=== PATIENT | female | born 1935 | race Two or more races ===

== ENCOUNTER 2018-03-28 07:08 | Inpatient (IN) | payer OTHER ==
[2018-03-28] VITALS (42 sets, daily range): BP systolic 65–118; BP diastolic 26–51
[~2018-03-28] VITALS: Ht 152.4 cm; Wt 70.4 kg
--- NOTE | 2018-03-28 07:04 | Emergency Room Report ---
History of Present Illness General Source: Family Member, EMS Present Illness HPI Patient is 82-year-old female presented after increased altered level Consciousness. 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 The patient was noted to have decreased eye opening as well as decreased response to suctioning. The patient was noted to have adequate blood sugar by EMS. Allergies: Coded Allergies: No Known Allergies (Unverified , 03/28/18) Patient History Past Medical History: see triage record Reviewed Nursing Documentation: PMH: Agreed; PSxH: Agreed Review of Systems All Other Systems: limited - by mental status Physical Exam General Appearance: moderate distress, Chronically Ill ENT: dry mucus membranes Neck: limited range of motion Respiratory: rales Cardiovascular #1: edema - upper and lower extremity edema Gastrointestinal: normal inspection, normal bowel sounds, soft, other - gtube present Genitourinary: normal inspection Musculoskeletal: decreased range of motion, other - flaccid Neurologic: other - decreased motor strength, spontaneous respirations, no gag Psychiatric: other - unresponsive Skin: normal inspection, normal color Procedures Critical Care Time Critical Care Time Patient had a critical medical condition which untreated could potentially result in life or limb threatening injury. Total critical care time excluding procedures approximately 45 minutes. Central Line Central Line : Consent: Emergent Central Line Lumen: triple Maximal Sterile Barrier Tech: yes cap, yes mask, yes sterile gown, yes sterile gloves, yes large sterile sheet, yes hand hygiene, yes chlorhexidine prep Central Line Postion: internal jugular (R) Anesthesia: Lidocaine cc's of anesthesia: 3 Complications: none Central Line Post Position: sutured, good blood return, position confirmed w / CXR Attempts: Other - two Patient Tolerated: Well Complications: None Medical Decision Making Diagnostic Impression: Primary Impression: Severe sepsis Additional Impressions: Hyperkalemia, transcellular shifts Hepatic encephalopathy Hypotension Anemia Anasarca Lactic acidosis Ventilator dependent Feeding by G-tube Pulmonary edema ER Course Patient presented for altered mental status. Differential diagnosis included but was not limited to ischemic stroke, subarachnoid hemorrhage, hypoglycemia, spinal cord injury, neurodegenerative disorder, urinary tract infection, hypoxemia.Because of complexity of patient's case laboratory testing and imaging studies were ordered.The patient was noted to be hypotensive with poor IV access due to anasarca. A right internal jugular IV central line was placed emergently. The patient noted be hypotensive was started on IV fluids.The patient was noted to have recent blood draw with evidence of anemia as well as elevated BUN. Creatinine appeared normal. Patient may have some occult GI bleeding.The patient noted be G-tube dependent.Additional history is obtained from family member who states that the patient had a prolonged hospital stay [facility]. The patient had initially had history of atrial fibrillation as well as venous insufficiency and diabetes. Patient subsequently had complications from pneumonia and required intubation and tracheostomy and had increasing complications during hospitalization. The patient subsequently had a large stroke. Per patient's family patient had been somewhat responsive a few days ago. 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 Dr Leonel Rivero was contacted for inpatient management due to panel physician. Labs Test 03/28/18 07:30 White Blood Count 19.0 K/UL (4.8-10.8) Red Blood Count 2.45 M/UL (4.20-5.40) Hemoglobin 7.4 G/DL (12.0-16.0) Hematocrit 24.1 % (37.0-47.0) Mean Corpuscular Volume 98 FL (80-99) Mean Corpuscular Hemoglobin 30.4 PG (27.0-31.0) Mean Corpuscular Hemoglobin Concent 30.9 G/DL (32.0-36.0) Red Cell Distribution Width 17.2 % (11.6-14.8) Platelet Count 244 K/UL (150-450) Mean Platelet Volume 7.0 FL (6.5-10.1) Neutrophils (%) (Auto) % (45.0-75.0) Lymphocytes (%) (Auto) % (20.0-45.0) Monocytes (%) (Auto) % (1.0-10.0) Eosinophils (%) (Auto) % (0.0-3.0) Basophils (%) (Auto) % (0.0-2.0) Prothrombin Time 11.2 SEC (9.30-11.50) Prothromb Time International Ratio 1.1 (0.9-1.1) Activated Partial Thromboplast Time 41 SEC (23-33) Urine Color Yellow Urine Appearance Clear Urine pH 5 (4.5-8.0) Urine Specific [place] 1.015 (1.005-1.035) Urine Protein Negative (NEGATIVE) Urine Glucose (UA) Negative (NEGATIVE) Urine Ketones Negative (NEGATIVE) Urine Occult Blood Negative (NEGATIVE) Urine Nitrite Negative (NEGATIVE) Urine Bilirubin Negative (NEGATIVE) Urine Urobilinogen Normal MG/DL (0.0-1.0) Urine Leukocyte Esterase 1+ (NEGATIVE) Urine RBC 0-2 /HPF (0 - 2) Urine WBC 0-2 /HPF (0 - 2) Urine Squamous Epithelial Cells Few /LPF (NONE/OCC) Urine Bacteria Occasional /HPF (NONE) Sodium Level 130 MMOL/L (136-145) Potassium Level 6.1 MMOL/L (3.5-5.1) Chloride Level 97 MMOL/L (98-107) Carbon Dioxide Level 16 MMOL/L (21-32) Anion Gap 18 mmol/L (5-15) Blood Urea Nitrogen 114 mg/dL (7-18) Creatinine 2.1 MG/DL (0.55-1.30) Estimat Glomerular Filtration Rate mL/min (>60) Glucose Level 102 MG/DL (74-106) Lactic Acid Level 8.00 mmol/L (0.4-2.0) Calcium Level 8.1 MG/DL (8.5-10.1) Phosphorus Level 9.7 MG/DL (2.5-4.9) Magnesium Level 3.0 MG/DL (1.8-2.4) Total Bilirubin 0.9 MG/DL (0.2-1.0) Aspartate Amino Transf (AST/SGOT) 113 U/L (15-37) Alanine Aminotransferase (ALT/SGPT) 25 U/L (12-78) Alkaline Phosphatase 427 U/L (46-116) Total Creatine Kinase 80 U/L (26-308) Creatine Kinase MB 2.9 NG/ML (0.0-3.6) Creatine Kinase MB Relative Index 3.6 Troponin I 0.060 ng/mL (0.000-0.056) Total Protein 6.5 G/DL (6.4-8.2) Albumin 1.4 G/DL (3.4-5.0) Globulin 5.1 g/dL Albumin/Globulin Ratio 0.3 (1.0-2.7) Thyroid Stimulating Hormone (TSH) 1.229 uiU/mL (0.358-3.740) EKG Diagnostic Results Rate: bradycardiac Rhythm: NSR ST Segments: no acute changes Status: unchanged Disposition: ADMITTED INPATIENT Condition: Critical Golden Fisher MD Mar 28, 2018 07:04
[2018-03-28] MEDS ORDERED: ATORVASTATIN CA40 MG GT (07:21)
[2018-03-28] MEDS ORDERED: ASPIR 8181 MG GT (07:21)
[2018-03-28] MEDS ORDERED: CALCIUM + VITA1 EAC1 GT (07:21)
[2018-03-28] MEDS ORDERED: ACETAZOLAMIDE250 MG GT (07:21)
[2018-03-28] MEDS ORDERED: AMLODIPINE BESY10 MG GT (07:21)
[2018-03-28] MEDS ORDERED: LACRI-LUBE1 APPLIC BOTH EYES (07:21)
[2018-03-28] MEDS ORDERED: METOPROLOL SUCC25 MG GT (07:28)
[2018-03-28] MEDS ORDERED: MIRALAX17 G2 GT (07:28)
[2018-03-28] MEDS ORDERED: FAMOTIDINE20 MG GT (07:28)
[2018-03-28] MEDS ORDERED: CLOPIDOGREL75 MG GT (07:28)
[2018-03-28] MEDS ORDERED: VITAMIN D250000 UNI1 GT (07:28)
[2018-03-28] MEDS ORDERED: GABAPENTIN GT (07:28)
[2018-03-28] MEDS ORDERED: FUROSEMIDE40 MG GT (07:28)
[2018-03-28] MEDS ORDERED: ZOFRAN 4 MG4 MG/2 ML IM (07:28)
[2018-03-28] MEDS ORDERED: ACETAMINOPHEN325 M1 GT (07:37)
[2018-03-28] MEDS ORDERED: UTI-STAT L3875 MG/31 GT (07:37)
[2018-03-28] MEDS ORDERED: BISACODYL5 MG RC (07:37)
[2018-03-28] MEDS ORDERED: SENNA-S TABLET1 EACH GT (07:37)
[2018-03-28] MEDS ORDERED: Ampicillin/Sulbactam Sod 3 GM in NS 110 ML IV SCH (07:45)
[2018-03-28] MEDS ORDERED: ZINC SULFATE220 M1 GT (07:52)
[2018-03-28] MEDS ORDERED: VITAMIN C500 M1 GT (07:52)
[2018-03-28] MEDS ORDERED: MULTI-DELYN237 ML GT (07:52)
[2018-03-28 07:53] LABS: HEMATOCRIT 24.1 % (37.0-47.0); HEMOGLOBIN 7.4 G/DL (12.0-16.0); MEAN CORPUSCULAR VOLUME 98 FL (80-99); PLATELET COUNT 244 K/UL (150-450); RED BLOOD COUNT 2.45 M/UL (4.20-5.40); RED CELL DISTRIBUTION WIDTH 17.2 % (11.6-14.8)
[2018-03-28] MEDS ORDERED: Atropine Inj 1mg/10ml Syr ONE (07:55)
[2018-03-28] MEDS ORDERED: NOVOLIN N100 UNIT/1 SUBQ (07:55)
[2018-03-28] MEDS ORDERED: SEROQUEL25 MG GT (07:55)
[2018-03-28] MEDS ORDERED: LISPRO INSULIN (07:55)
[2018-03-28] MEDS ORDERED: Atropine Inj 1mg/10ml Syr IVP ONE (08:00)
[2018-03-28] MEDS ORDERED: Calcium Gluconate 1gm/10ml vial IVP ONE (08:00)
[2018-03-28 08:16] LABS: ALANINE AMINOTRANSFERASE 25 U/L (12-78); ALBUMIN 1.4 G/DL (3.4-5.0); ALBUMIN/GLOBULIN RATIO 0.3 (1.0-2.7); ALKALINE PHOSPHATASE 427 U/L (46-116); ANION GAP 18 mmol/L (5-15); ASPARTATE AMINO TRANSFERASE 113 U/L (15-37); BILIRUBIN,TOTAL 0.9 MG/DL (0.2-1.0); BLOOD UREA NITROGEN 114 mg/dL (7-18); CALCIUM 8.1 MG/DL (8.5-10.1); CARBON DIOXIDE 16 MMOL/L (21-32); CHLORIDE 97 MMOL/L (98-107); CKMB 2.9 NG/ML (0.0-3.6); CREATINE KINASE 80 U/L (26-308); CREATININE 2.1 MG/DL (0.55-1.30); PHOSPHORUS 9.7 MG/DL (2.5-4.9); SODIUM 130 MMOL/L (136-145)
[2018-03-28 08:21] LABS: POTASSIUM 6.1 MMOL/L (3.5-5.1)
[2018-03-28 08:26] LABS: APPEARANCE,URINE CLEAR; BILIRUBIN, URINE NEGATIVE (NEGATIVE); GLUCOSE, URINE (UA) NEGATIVE (NEGATIVE); KETONES,URINE NEGATIVE (NEGATIVE); LEUKOCYTE ESTERASE ,URINE 1+ (NEGATIVE); NITRITE,URINE NEGATIVE (NEGATIVE); PH,URINE 5 (4.5-8.0); PROTEIN,URINE NEGATIVE (NEGATIVE); UROBILINOGEN,URINE NORMAL MG/DL (0.0-1.0)
[2018-03-28 08:28] LABS: COLOR,URINE YELLOW
[2018-03-28 08:30] LABS: INR 1.1 (0.9-1.1)
[2018-03-28] MEDS ORDERED: Sodium Bicarbonate 50ml Carp IV ONE (08:30)
[2018-03-28 08:48] LABS: AMMONIA 123 umol/L (11-32)
[2018-03-28] MEDS: Lactulose 20gm/30ml UDC GT ONE ×3 (09:00→12:04)
[2018-03-28] MEDS ORDERED: Thiamine HCl 100 MG in D5W 55 ML IVPB SCH (09:00)
--- NOTE | 2018-03-28 09:13 | Diagnostic Imaging Report ---
INDICATION: Shortness of breath COMPARISON: None FINDINGS: Single frontal view demonstrates a normal cardiomediastinal silhouette. Atherosclerotic vascular disease. Tracheostomy. Small right pleural effusion. Patchy opacities in bilateral lungs may be suggestive of pulmonary edema versus infectious etiology, followup to resolution. Right internal jugular central venous catheter with tip in the distal superior vena cava/right atrium. The visualized osseous structures are within normal limits. IMPRESSION: 1. Small right pleural effusion. Patchy opacities in bilateral lungs may be suggestive of pulmonary edema versus infectious etiology, followup to resolution. 2. Tracheostomy. Right internal jugular central venous catheter with tip in the distal superior vena cava/right atrium.
--- NOTE | 2018-03-28 09:36 | Diagnostic Imaging Report ---
INDICATION: TECHNIQUE: Multiple, contiguous 2.5 mm axial cuts of the brain are obtained from the posterior fossa to the cranial vault. Sagittal and coronal reformatted images provided. No IV contrast is administered. One or more of the following dose reduction techniques were used: automated exposure control, adjustment of the mA and/or kV according to patient size, use of iterative reconstruction technique. COMPARISON: FINDINGS: No intracranial hemorrhage, abnormal intra- or extra-axial collections or parenchymal lesions are seen. There are involutional changes with prominence of the sulci, basal cisterns and ventricles. Scattered white matter hypoattenuations are present, likely from small vessel disease. Likely old infarct involving the left posterior parietal lobe, if clinical concern for superimposed acute infarct dedicated MRI can be obtained. The bay-white differentiation is preserved. No evidence of mass effect, midline shift, or edema. The osseous structures are unremarkable. The visualized portions of the paranasal sinuses are clear. IMPRESSION: 1. No acute intracranial process. 2. Involutional changes with small vessel disease. 3. Likely old infarct involving the left posterior parietal lobe, if clinical concern for superimposed acute infarct dedicated MRI can be obtained. CTDI: 70.38 mGy DLP:1393.46 mGycm
[2018-03-28] MEDS ORDERED: Lactulose 20gm/30ml UDC ONE (12:02)
--- NOTE | 2018-03-28 13:24 | Diagnostic Imaging Report ---
EXAM: US Abdomen Complete CLINICAL HISTORY: PAIN TECHNIQUE: Real-time ultrasound of the abdomen (complete) with image documentation. COMPARISON: No relevant prior studies available. FINDINGS: Liver: Diffusely echogenic liver, suggesting fatty infiltration. No intrahepatic bile duct dilation. Gallbladder: Cholelithiasis. No gallbladder wall thickening or pericholecystic fluid. Negative sonographic Arteaga sign. Common bile duct: Common bile duct diameter 2.5 mm. No stones. No dilation. Pancreas: Unremarkable as visualized. Pancreatic body and tail are obscured by bowel gas. Kidneys: Right kidney measures 10.9 x 5.0 x 4.2 cm. Left kidney measures 10.8 x 5.8 x 4.7 cm. No stones. No hydronephrosis. Spleen: Spleen has a diameter of 8.7 cm. Aorta: The visualized proximal and mid portions appear unremarkable. Distal portion obscured by bowel gas and overlying dressings.. Inferior vena cava: Unremarkable. IMPRESSION: 1. Diffusely echogenic liver, suggesting fatty infiltration. 2. Cholelithiasis. No gallbladder wall thickening or pericholecystic fluid. Negative sonographic Arteaga sign.
[2018-03-28] MEDS ORDERED: Acetaminophen 650mg/20.3ml GT PRN (13:45)
[2018-03-28] MEDS: Sodium Polystyrene Sulfonate 15gm Powder GT SCH ×2 (14:30→15:40)
[2018-03-28] MEDS ORDERED: Vancomycin 1250mg/D5W 250ml IVPB ONE (15:00)
[2018-03-28 15:06] LABS: HEMATOCRIT 33.1 % (37.0-47.0); HEMOGLOBIN 10.4 G/DL (12.0-16.0); MEAN CORPUSCULAR VOLUME 93 FL (80-99); PLATELET COUNT 218 K/UL (150-450); RED BLOOD COUNT 3.55 M/UL (4.20-5.40); RED CELL DISTRIBUTION WIDTH 16.2 % (11.6-14.8)
[2018-03-28 15:30] LABS: ANION GAP 18 mmol/L (5-15); BLOOD UREA NITROGEN 111 mg/dL (7-18); CALCIUM 7.7 MG/DL (8.5-10.1); CARBON DIOXIDE 15 MMOL/L (21-32); CHLORIDE 100 MMOL/L (98-107); CREATININE 1.9 MG/DL (0.55-1.30); SODIUM 133 MMOL/L (136-145)
[2018-03-28 15:40] LABS: ALANINE AMINOTRANSFERASE 37 U/L (12-78); ALBUMIN 1.5 G/DL (3.4-5.0); ALBUMIN/GLOBULIN RATIO 0.3 (1.0-2.7); ALKALINE PHOSPHATASE 380 U/L (46-116); ASPARTATE AMINO TRANSFERASE 220 U/L (15-37); BILIRUBIN,TOTAL 1.2 MG/DL (0.2-1.0)
[2018-03-28 15:44] LABS: BILIRUBIN,DIRECT 1.1 MG/DL (0.0-0.3)
[2018-03-28] MEDS: Sodium Bicarbonate 50 ML in 1/2 NS 1000ml 1,000 ML IV SCH (17:18)
[2018-03-28] MEDS: Piperacillin/Tazobactam 3.375 GM in D5W 110 ML IVPB SCH (17:24)
[2018-03-28] MEDS: NovoLOG Insulin Flexpen SUBQ SCH ×2 (17:26→23:48)
[2018-03-28] MEDS: Dyna-Hex 2% Top Sol 2oz TOPIC SCH (19:39)
[2018-03-29] VITALS (31 sets, daily range): BP systolic 12–124; BP diastolic 23–67
--- NOTE | 2018-03-29 | History and Physical Report ---
DATE OF ADMISSION: 03/28/2018 CHIEF COMPLAINT: Septic shock, respiratory failure, and encephalopathy. HISTORY OF PRESENT ILLNESS: She is an unfortunate 82-year-old female. She has a history of chronic respiratory failure, G-tube, diabetes, and hypertension. She has a history of atrial fibrillation, cerebral aneurysm, diabetic nephropathy, and venous insufficiency. She was transferred from a halfway facility with complaints of altered mental status. The patient on evaluation at the emergency room was very poorly responsive, lethargic, somnolent, and sleepy. She was hypotensive. She had an elevated BUN of 114 with a creatinine of 2. Potassium was also elevated at 6. Her ammonia level was 123. The patient was pancultured and started on broad-spectrum IV antibiotics and now admitted for further evaluation and care. PAST MEDICAL HISTORY: As above. PAST SURGICAL HISTORY: Includes trach and G-tube. CURRENT MEDICATIONS: Reconciled and reviewed. ALLERGIES: Unknown. FAMILY HISTORY: Unknown. SOCIAL HISTORY: There is no known history of tobacco, ethanol, or drugs. REVIEW OF SYSTEMS: From the patient is unobtainable as she is nonverbal. PHYSICAL EXAMINATION: VITAL SIGNS: Temperature 97.6, pulse 83, respirations 22, and blood pressure 102/36. GENERAL: The patient is a chronically ill-appearing female, poorly responsive, and in no apparent distress. She is currently on the ventilator. NECK: Supple. HEART: Regular rate and rhythm. LUNGS: Scattered rhonchi. ABDOMEN: Soft, nontender, and nondistended. EXTREMITIES: Without clubbing. There is some gangrene. There is a right heel ulcer. There is noted to be gangrenous changes of the toes on the right foot. LABORATORY DATA: ABG showed a pH of 7.09, pCO2 51, pO2 245, bicarb of 15, and O2 saturation 99. White count 19,000, hemoglobin 7.4, hematocrit 24, and platelets 244,000. Coags are normal. Sodium 138, potassium 6.1, chloride 97, bicarb 16, BUN 114, and creatinine is 2.1. Mag of 3. AST 113 and alkaline phosphatase 427. Ammonia level is 123. Troponin was 0.06. Chest x-ray showed bilateral infiltrates. CT scan of the head showed no acute bleed or stroke. Abdominal ultrasound showed gallstones, but no pericholecystic fluid or gallbladder wall thickening. ASSESSMENT: This is an unfortunate female admitted with complaints of altered mental status, multifactorial, secondary to acute renal failure, possible sepsis, and hepatic encephalopathy. 1. Shock. 2. Sepsis. 3. Pneumonia. 4. Hepatic encephalopathy. 5. Respiratory failure, chronic. 6. History of stroke. 7. Diabetes. 8. History of hypertension. 9. Atrial fibrillation. 10. History of brain aneurysm. PLAN: 1. Aggressive fluid resuscitation. 2. Transfuse. 3. Check stool for occult blood. 4. We will hold antiplatelet therapy in light of the patient's anemia and possible concern for gastrointestinal bleed. 5. We will review ultrasound. 6. GI consultation and ID consultations to be obtained. 7. Continue ventilatory support. 8. The patient's overall prognosis is guarded in light of her multiple medical issues and problems. Leonel Rivero M.D. DR: HUBER JOB#: [id number] CC:
--- NOTE | 2018-03-29 02:15 | Consultation ---
DATE OF CONSULTATION: 03/28/2018 PULMONARY CONSULTATION CONSULTING PHYSICIAN: Fei Velasquez M.D. REFERRING PHYSICIAN: Leonel Rivero M.D. REASON FOR CONSULTATION: Respiratory failure, ventilatory management. HISTORY OF PRESENT ILLNESS: This is an unfortunate 82-year-old male, presented to the emergency room. The patient has improved mental status overall. The patient was noted to have a prior history of chronic encephalopathy. The patient is trach and G-tube dependent. The patient was brought in through the emergency room and was noted to be extremely acidotic, metabolic. The patient now on the ventilator and I was called to assist and evaluate further. The patient is unable to give much of the history at present. The patient's care reviewed and case discussed. PAST MEDICAL HISTORY: Notable for G-tube, tracheostomy, diabetes, hypertension, and atherosclerotic heart disease. MEDICATIONS: Reviewed. ALLERGIES: Reviewed. SOCIAL HISTORY: Resides at a custodial facility. PHYSICAL EXAMINATION: GENERAL: A well-developed male, chronically ill. VITAL SIGNS: Blood pressure 107/73, saturations 100%, the patient's heart rate is 82, the patient is currently afebrile. The patient is tachypneic on the ventilator LUNGS: With scattered rhonchi. Moderate air entry. CARDIAC: Normal S1, S2. Regular rate and rhythm. Distant. ABDOMEN: Soft, nontender. G-tube. EXTREMITIES: No cyanosis. Reduced range of motion. Poor mental status. NEUROLOGICAL: Obtunded. LABORATORY DATA: Labs are reviewed. ABG, 7.18, 39, 59, and bicarbonate 17. Chemistries, sodium 137, creatinine 1.9. Lactic acid 3.2. Albumin is 1.5. White cell count 13, hemoglobin 10, and platelets are 218. X-ray of the chest with pleural effusion and patchy infiltrates. IMPRESSION: 1. Multiorgan dysfunction. 2. Respiratory failure. 3. Metabolic acidemia. 4. Lactic acidosis. 5. Leukocytosis. 6. Anemia. 7. Severe protein-calorie malnutrition. 8. Acute renal failure. 9. Diabetes. 10. Hypotension. RECOMMENDATIONS: Supportive care. Hyperventilated. Follow up arterial blood gases and try to keep pH greater than 7.2. If possible, intravenous antibiotics, aggressive management. Intravenous hydration with aggressive management and pressors as needed and monitor for change and titrate if the patient improved. The patient is critical at present. We will follow up medically for change. Fei Velasquez M.D. DR: JUSTUS JOB#: [id number] CC: MARK
[2018-03-29] MEDS: Sodium Bicarbonate 50 ML in 1/2 NS 1000ml 1,000 ML IV SCH ×2 (03:56→13:56)
[2018-03-29] MEDS: NovoLOG Insulin Flexpen SUBQ SCH ×4 (05:39→23:36)
[2018-03-29] MEDS ORDERED: Vancomycin 1250mg/D5W 250ml IVPB SCH (08:00)
[2018-03-29 08:21] LABS: HEMATOCRIT 28.9 % (37.0-47.0); HEMOGLOBIN 9.3 G/DL (12.0-16.0); MEAN CORPUSCULAR VOLUME 91 FL (80-99); PLATELET COUNT 203 K/UL (150-450); RED BLOOD COUNT 3.18 M/UL (4.20-5.40); RED CELL DISTRIBUTION WIDTH 16.2 % (11.6-14.8); WHITE BLOOD COUNT 15.2 K/UL (4.8-10.8)
[2018-03-29] MEDS: Zinc Sulfate 220mg cap GT SCH (08:44)
[2018-03-29] MEDS: Ascorbic Acid 500mg tab GT SCH (08:44)
[2018-03-29] MEDS: Piperacillin/Tazobactam 3.375 GM in D5W 110 ML IVPB SCH ×2 (08:45→21:06)
--- NOTE | 2018-03-29 08:46 | Critical Care Progress Note ---
Assessment/Plan Assessment/Plan IMPRESSION: 1. Multiorgan dysfunction. 2. Respiratory failure. 3. Metabolic acidemia. 4. Lactic acidosis. 5. Leukocytosis. 6. Anemia. 7. Severe protein-calorie malnutrition. 8. Acute renal failure. 9. Diabetes. 10. Hypotension. PLAN pressors hyperventilate monitor for change antibiotics IV hydration feeds ICU care and management repeat ABG and adjust vent Critical Care - Subjective Interval Events: on vent on AC20 poor LOC ROS Limited/Unobtainable: Yes Condition: critical I&O: Intake and Output 03/28/18 03/29/18 19:00 07:00 Intake Total 1552.0 ml 1350.5 ml Output Total 730 ml 465 ml Balance 822.0 ml 885.5 ml Intake Oral 0 ml Free Water 30 ml IV Total 1522.0 ml 1350.5 ml Output Urine Total 330 ml 165 ml Stool Total 300 ml Gastric Drainage Total 400 ml # Bowel Movements 1 3 Critical Care - Objective Last 24 Hour Vital Signs Date Time Temp Pulse Resp B/P (MAP) Pulse Ox O2 Delivery O2 Flow Rate FiO2 03/29/18 08:00 50 03/29/18 08:00 98.6 84 22 121/33 100 Mechanical Ventilator 50 98.6 03/29/18 07:26 87 20 50 03/29/18 07:00 86 20 116/30 100 Mechanical Ventilator 50 03/29/18 06:30 85 20 112/33 100 Mechanical Ventilator 50 03/29/18 06:00 84 20 108/29 100 Mechanical Ventilator 50 03/29/18 06:00 108/29 03/29/18 05:30 86 21 118/33 100 Mechanical Ventilator 50 03/29/18 05:26 91 21 50 03/29/18 05:00 83 20 121/28 99 Mechanical Ventilator 50 03/29/18 05:00 121/28 03/29/18 04:30 79 20 124/30 100 Mechanical Ventilator 50 03/29/18 04:00 50 03/29/18 04:00 109/31 03/29/18 04:00 98.5 84 22 109/31 100 Mechanical Ventilator 50 98.5 03/29/18 03:30 88 21 106/33 100 Mechanical Ventilator 50 03/29/18 03:28 80 03/29/18 03:01 91 20 80 03/29/18 03:00 85 21 123/43 100 Mechanical Ventilator 50 03/29/18 03:00 123/43 03/29/18 02:30 89 21 103/32 100 Mechanical Ventilator 50 03/29/18 02:00 109/23 03/29/18 02:00 89 22 109/29 100 Mechanical Ventilator 50 03/29/18 01:30 88 22 118/30 99 Mechanical Ventilator 50 03/29/18 01:00 97 21 80 03/29/18 01:00 106/39 03/29/18 01:00 88 20 106/39 100 Mechanical Ventilator 50 03/29/18 00:30 79 20 106/35 100 Mechanical Ventilator 50 03/29/18 00:00 98.7 81 20 99/31 100 Mechanical Ventilator 50 98.7 03/29/18 00:00 50 03/29/18 00:00 99/31 03/28/18 23:30 82 20 109/40 98 Mechanical Ventilator 50 03/28/18 23:07 90 03/28/18 23:00 89/34 03/28/18 23:00 89 21 80 03/28/18 23:00 79 19 89/34 98 Mechanical Ventilator 50 03/28/18 22:30 85 20 93/30 99 Mechanical Ventilator 50 03/28/18 22:00 94/38 03/28/18 22:00 86 21 109/40 99 Mechanical Ventilator 50 03/28/18 21:30 80 20 99/37 98 Mechanical Ventilator 50 03/28/18 21:15 79 20 80 03/28/18 21:00 83 20 92/42 99 Mechanical Ventilator 50 03/28/18 21:00 92/42 03/28/18 20:30 84 20 99/36 100 Mechanical Ventilator 50 03/28/18 20:00 50 03/28/18 20:00 97/39 03/28/18 20:00 98.7 87 21 97/39 100 Mechanical Ventilator 50 98.7 03/28/18 19:31 82 03/28/18 19:30 82 20 107/33 100 Mechanical Ventilator 50 03/28/18 19:09 88 22 80 03/28/18 19:00 103/36 03/28/18 19:00 84 22 104/35 100 Mechanical Ventilator 50 03/28/18 18:30 84 22 118/36 100 Mechanical Ventilator 50 03/28/18 18:15 83 22 107/32 100 Mechanical Ventilator 50 18 18:00 122/31 6/18 18:00 82 22 107/35 100 Mechanical Ventilator 50 6/18 17:30 83 22 104/37 100 Mechanical Ventilator 80 6/10/18 17:19 118/36 6/1018 17:00 84 22 118/36 100 Mechanical Ventilator 80 6/10/18 16:45 83 22 105/38 100 Mechanical Ventilator 80 6/18 16:39 84 21 80 6/1018 16:30 83 22 112/38 100 Mechanical Ventilator 80 6/1018 16:15 82 22 105/38 100 Mechanical Ventilator 80 6/18 16:00 97.6 83 22 102/36 100 Mechanical Ventilator 80 97.6 6 16:00 108/33 6 16:00 80 6/08/05 16:00 81 6/1018 15:45 82 22 105/38 100 Mechanical Ventilator 80 6/18 15:30 83 18 105/30 100 Mechanical Ventilator 80 618 15:15 83 20 105/32 100 Mechanical Ventilator 80 618 15:00 83 18 102/36 100 Mechanical Ventilator 80 618 14:58 84 34 80 6//18 14:45 83 20 102/34 100 Mechanical Ventilator 80 6/18 14:30 83 20 99/36 100 Mechanical Ventilator 80 6/18 14:15 83 20 89/41 100 Mechanical Ventilator 80 6/18 14:00 98.5 83 20 112/43 100 Mechanical Ventilator 80 98.5 03/28/18 13:30 80 6 12:55 90 28 80 6/18 12:54 87 6/1018 12:40 97.2 87 20 113/42 100 Mechanical Ventilator 100 97.2 6/18 12:39 87 20 113/42 100 Mechanical Ventilator 100 6/18 11:59 97.2 75 20 112/45 100 Mechanical Ventilator 100 97.2 6/1018 11:30 84 20 106/45 100 Mechanical Ventilator 100 6/18 11:00 95 20 108/38 100 Mechanical Ventilator 100 6 10:39 91 20 106/34 100 Mechanical Ventilator 100 6/08/05 10:33 94 22 100 6/1018 10:24 93/37 03/28/18 10:20 97.6 89 20 98/38 100 Mechanical Ventilator 100 97.6 03/28/18 10:11 97.7 85 20 97.7 03/28/18 10:00 97.7 85 33 93/38 100 Mechanical Ventilator 100 97.7 03/28/18 09:30 90 33 103/33 100 Mechanical Ventilator 100 03/28/18 09:29 91 25 100 03/28/18 09:00 85 33 112/38 100 Mechanical Ventilator 100 Labs: Laboratory Tests Test 03/28/18 09:30 03/28/18 14:30 03/28/18 16:50 03/28/18 23:09 Lactic Acid Level 5.70 mmol/L (0.66-2.22) H 3.20 mmol/L (0.4-2.0) H White Blood Count 15.0 K/UL (4.8-10.8) H Red Blood Count 3.55 M/UL (4.20-5.40) L Hemoglobin 10.4 G/DL (12.0-16.0) #L Hematocrit 33.1 % (37.0-47.0) #L Mean Corpuscular Volume 93 FL (80-99) Mean Corpuscular Hemoglobin 29.2 PG (27.0-31.0) Mean Corpuscular Hemoglobin Concent 31.3 G/DL (32.0-36.0) L Red Cell Distribution Width 16.2 % (11.6-14.8) H Platelet Count 218 K/UL (150-450) Mean Platelet Volume 7.6 FL (6.5-10.1) Neutrophils (%) (Auto) % (45.0-75.0) Lymphocytes (%) (Auto) % (20.0-45.0) Monocytes (%) (Auto) % (1.0-10.0) Eosinophils (%) (Auto) % (0.0-3.0) Basophils (%) (Auto) % (0.0-2.0) Differential Total Cells Counted 100 Neutrophils % (Manual) 64 % (45-75) Lymphocytes % (Manual) 10 % (20-45) L Monocytes % (Manual) 8 % (1-10) Eosinophils % (Manual) 0 % (0-3) Basophils % (Manual) 0 % (0-2) Band Neutrophils 18 % (0-8) H Nucleated Red Blood Cells 6 /100 WBC Platelet Estimate Adequate Platelet Morphology Normal Giant Platelets Occasional Polychromasia 1+ Hypochromasia 1+ Poikilocytosis 1+ Anisocytosis 2+ Acanthocytes 1+ Schistocytes Occasional Sodium Level 133 MMOL/L (136-145) L Potassium Level 5.0 MMOL/L (3.5-5.1) Chloride Level 100 MMOL/L (98-107) Carbon Dioxide Level 15 MMOL/L (21-32) L Anion Gap 18 mmol/L (5-15) H Blood Urea Nitrogen 111 mg/dL (7-18) H Creatinine 1.9 MG/DL (0.55-1.30) H Estimat Glomerular Filtration Rate mL/min (>60) Glucose Level 164 MG/DL (74-106) H Hemoglobin A1c 6.4 % (4.3-6.0) H Calcium Level 7.7 MG/DL (8.5-10.1) L Total Bilirubin 1.2 MG/DL (0.2-1.0) H Direct Bilirubin 1.1 MG/DL (0.0-0.3) H Aspartate Amino Transf (AST/SGOT) 220 U/L (15-37) H Alanine Aminotransferase (ALT/SGPT) 37 U/L (12-78) Alkaline Phosphatase 380 U/L (46-116) H Total Protein 6.3 G/DL (6.4-8.2) L Albumin 1.5 G/DL (3.4-5.0) L Globulin 4.8 g/dL Albumin/Globulin Ratio 0.3 (1.0-2.7) L Arterial Blood pH 7.180 (7.350-7.450) Arterial Blood Partial Pressure CO2 39.8 mmHg (35.0-45.0) Arterial Blood Partial Pressure O2 159.2 mmHg (75.0-100.0) H Arterial Blood HCO3 14.6 mmol/L (22.0-26.0) L Arterial Blood Oxygen Saturation 98.7 % (92.0-98.0) H Arterial Blood Base Excess -13.0 Cristopher Test Positive Stool Occult Blood Pending Test 03/29/18 05:00 03/29/18 06:25 Lactic Acid Level 1.60 mmol/L (0.4-2.0) Random Vancomycin Level 17.7 ug/mL White Blood Count 15.2 K/UL (4.8-10.8) H Red Blood Count 3.18 M/UL (4.20-5.40) L Hemoglobin 9.3 G/DL (12.0-16.0) L Hematocrit 28.9 % (37.0-47.0) L Mean Corpuscular Volume 91 FL (80-99) Mean Corpuscular Hemoglobin 29.4 PG (27.0-31.0) Mean Corpuscular Hemoglobin Concent 32.4 G/DL (32.0-36.0) Red Cell Distribution Width 16.2 % (11.6-14.8) H Platelet Count 203 K/UL (150-450) Mean Platelet Volume 7.0 FL (6.5-10.1) Neutrophils (%) (Auto) % (45.0-75.0) Lymphocytes (%) (Auto) % (20.0-45.0) Monocytes (%) (Auto) % (1.0-10.0) Eosinophils (%) (Auto) % (0.0-3.0) Basophils (%) (Auto) % (0.0-2.0) Neutrophils % (Manual) Pending Lymphocytes % (Manual) Pending Platelet Estimate Pending Platelet Morphology Pending Sodium Level Pending Potassium Level Pending Chloride Level Pending Carbon Dioxide Level Pending Blood Urea Nitrogen Pending Creatinine Pending Estimat Glomerular Filtration Rate Pending Glucose Level Pending Calcium Level Pending Total Bilirubin Pending Aspartate Amino Transf (AST/SGOT) Pending Alanine Aminotransferase (ALT/SGPT) Pending Alkaline Phosphatase Pending Total Protein Pending Albumin Pending Globulin Pending Objective: GENERAL: A well-developed female, chronically ill. LUNGS: With minimal rhonchi. Moderate air entry. CARDIAC: Normal S1, S2. Regular rate and rhythm. Distant. ABDOMEN: Soft, nontender. G-tube. EXTREMITIES: No cyanosis. Reduced range of motion. Poor mental status. NEUROLOGICAL: Obtunded. Accucheck: 156 Fei Velasquez MD Mar 29, 2018 08:46
[2018-03-29 09:02] LABS: ALANINE AMINOTRANSFERASE 45 U/L (12-78); ALBUMIN 1.4 G/DL (3.4-5.0); ALBUMIN/GLOBULIN RATIO 0.3 (1.0-2.7); ALKALINE PHOSPHATASE 380 U/L (46-116); ANION GAP 18 mmol/L (5-15); ASPARTATE AMINO TRANSFERASE 316 U/L (15-37); BILIRUBIN,TOTAL 1.4 MG/DL (0.2-1.0); BLOOD UREA NITROGEN 119 mg/dL (7-18); CALCIUM 7.3 MG/DL (8.5-10.1); CARBON DIOXIDE 18 MMOL/L (21-32); CHLORIDE 97 MMOL/L (98-107); CREATININE 2.1 MG/DL (0.55-1.30); POTASSIUM 4.7 MMOL/L (3.5-5.1); SODIUM 132 MMOL/L (136-145)
[2018-03-29 09:07] LABS: BILIRUBIN,DIRECT 1.1 MG/DL (0.0-0.3)
--- NOTE | 2018-03-29 10:09 | General Progress Note ---
Assessment/Plan Problem List: (1) Lactic acidosis ICD Codes: E87.2 - Acidosis SNOMED: 48872727, 466200037 (2) Hyperkalemia, transcellular shifts ICD Codes: E87.5 - Hyperkalemia SNOMED: 1649162, 622473217 (3) Anemia ICD Codes: D64.9 - Anemia, unspecified SNOMED: 795089437, 552765957 (4) Anasarca ICD Codes: R60.1 - Generalized edema SNOMED: 971443943, 123945217 (5) Pulmonary edema ICD Codes: J81.1 - Chronic pulmonary edema SNOMED: 58660528 (6) Severe sepsis ICD Codes: A41.9 - Sepsis, unspecified organism; R65.20 - Severe sepsis without septic shock SNOMED: 10663769, 772116514 (7) Feeding by G-tube ICD Codes: Z93.1 - Gastrostomy status; R65.20 - Severe sepsis without septic shock SNOMED: 127814632, 753669892 (8) Hepatic encephalopathy ICD Codes: K72.90 - Hepatic failure, unspecified without coma SNOMED: 73376586, 073859302 Status: not improved, deteriorating Assessment/Plan convert to comfort care once all family has arrived pt with multiorgan system little hope of meaningful recovery d/w dtr at the bedside. states her mother told her she did not want to suffer Subjective ROS Limited/Unobtainable: Yes Constitutional: Reports: malaise, weakness HEENT: Reports: no symptoms Cardiovascular: Reports: edema Respiratory: Reports: no symptoms Gastrointestinal/Abdominal: Reports: no symptoms Genitourinary: Reports: no symptoms Neurologic/Psychiatric: Reports: pre-existing deficit Endocrine: Reports: no symptoms Hematologic/Lymphatic: Reports: no symptoms Allergies: Coded Allergies: No Known Allergies (Unverified , 03/28/18) All Systems: reviewed and negative except above Subjective unresponsive. +sob. no uop. off pressors. family at the bedside. does not want pt to suffer. want to convert to comfort care once all family members have arrived Objective Last 24 Hour Vital Signs Date Time Temp Pulse Resp B/P (MAP) Pulse Ox O2 Delivery O2 Flow Rate FiO2 03/29/18 09:27 91 20 50 03/29/18 09:00 71 17 107/47 100 Mechanical Ventilator 50 03/29/18 08:00 50 03/29/18 08:00 98.6 84 22 121/33 100 Mechanical Ventilator 50 98.6 03/29/18 08:00 85 03/29/18 07:26 87 20 50 03/29/18 07:00 86 20 116/30 100 Mechanical Ventilator 50 03/29/18 06:30 85 20 112/33 100 Mechanical Ventilator 50 03/29/18 06:00 84 20 108/29 100 Mechanical Ventilator 50 03/29/18 06:00 108/29 03/29/18 05:30 86 21 118/33 100 Mechanical Ventilator 50 03/29/18 05:26 91 21 50 03/29/18 05:00 83 20 121/28 99 Mechanical Ventilator 50 03/29/18 05:00 121/28 03/29/18 04:30 79 20 124/30 100 Mechanical Ventilator 50 03/29/18 04:00 50 03/29/18 04:00 109/31 03/29/18 04:00 98.5 84 22 109/31 100 Mechanical Ventilator 50 98.5 03/29/18 03:30 88 21 106/33 100 Mechanical Ventilator 50 03/29/18 03:28 80 03/29/18 03:01 91 20 80 03/29/18 03:00 85 21 123/43 100 Mechanical Ventilator 50 03/29/18 03:00 123/43 03/29/18 02:30 89 21 103/32 100 Mechanical Ventilator 50 03/29/18 02:00 109/23 03/29/18 02:00 89 22 109/29 100 Mechanical Ventilator 50 03/29/18 01:30 88 22 118/30 99 Mechanical Ventilator 50 03/29/18 01:00 97 21 80 03/29/18 01:00 106/39 03/29/18 01:00 88 20 106/39 100 Mechanical Ventilator 50 03/29/18 00:30 79 20 106/35 100 Mechanical Ventilator 50 03/29/18 00:00 98.7 81 20 99/31 100 Mechanical Ventilator 50 98.7 03/29/18 00:00 50 03/29/18 00:00 99/31 03/28/18 23:30 82 20 109/40 98 Mechanical Ventilator 50 03/28/18 23:07 90 03/28/18 23:00 89/34 6/10/18 23:00 89 21 80 6/18 23:00 79 19 89/34 98 Mechanical Ventilator 50 618 22:30 85 20 93/30 99 Mechanical Ventilator 50 6/18 22:00 94/38 6/18 22:00 86 21 109/40 99 Mechanical Ventilator 50 6/18 21:30 80 20 99/37 98 Mechanical Ventilator 50 6/18 21:15 79 20 80 6/18 21:00 83 20 92/42 99 Mechanical Ventilator 50 6 21:00 92/42 6/18 20:30 84 20 99/36 100 Mechanical Ventilator 50 6/08/05 20:00 50 6 20:00 97/39 6/08/05 20:00 98.7 87 21 97/39 100 Mechanical Ventilator 50 98.7 03/28/18 19:31 82 6/18 19:30 82 20 107/33 100 Mechanical Ventilator 50 03/28/18 19:09 88 22 80 6 19:00 103/36 6 19:00 84 22 104/35 100 Mechanical Ventilator 50 03/28/18 18:30 84 22 118/36 100 Mechanical Ventilator 50 18 18:15 83 22 107/32 100 Mechanical Ventilator 50 03/28/18 18:00 122/31 6 18:00 82 22 107/35 100 Mechanical Ventilator 50 18 17:30 83 22 104/37 100 Mechanical Ventilator 80 03/28/18 17:19 118/36 6 17:00 84 22 118/36 100 Mechanical Ventilator 80 03/28/18 16:45 83 22 105/38 100 Mechanical Ventilator 80 618 16:39 84 21 80 6/18 16:30 83 22 112/38 100 Mechanical Ventilator 80 18 16:15 82 22 105/38 100 Mechanical Ventilator 80 18 16:00 97.6 83 22 102/36 100 Mechanical Ventilator 80 97.6 618 16:00 108/33 618 16:00 80 6 16:00 81 6/18 15:45 82 22 105/38 100 Mechanical Ventilator 80 618 15:30 83 18 105/30 100 Mechanical Ventilator 80 6/18 15:15 83 20 105/32 100 Mechanical Ventilator 80 03/28/18 15:00 83 18 102/36 100 Mechanical Ventilator 80 03/28/18 14:58 84 34 80 03/28/18 14:45 83 20 102/34 100 Mechanical Ventilator 80 03/28/18 14:30 83 20 99/36 100 Mechanical Ventilator 80 03/28/18 14:15 83 20 89/41 100 Mechanical Ventilator 80 03/28/18 14:00 98.5 83 20 112/43 100 Mechanical Ventilator 80 98.5 03/28/18 13:30 80 03/28/18 12:55 90 28 80 03/28/18 12:54 87 03/28/18 12:40 97.2 87 20 113/42 100 Mechanical Ventilator 100 97.2 03/28/18 12:39 87 20 113/42 100 Mechanical Ventilator 100 03/28/18 11:59 97.2 75 20 112/45 100 Mechanical Ventilator 100 97.2 03/28/18 11:30 84 20 106/45 100 Mechanical Ventilator 100 03/28/18 11:00 95 20 108/38 100 Mechanical Ventilator 100 03/28/18 10:39 91 20 106/34 100 Mechanical Ventilator 100 03/28/18 10:33 94 22 100 03/28/18 10:24 93/37 03/28/18 10:20 97.6 89 20 98/38 100 Mechanical Ventilator 100 97.6 03/28/18 10:11 97.7 85 20 97.7 Intake and Output 03/28/18 03/29/18 19:00 07:00 Intake Total 1552.0 ml 1350.5 ml Output Total 730 ml 465 ml Balance 822.0 ml 885.5 ml Intake Oral 0 ml Free Water 30 ml IV Total 1522.0 ml 1350.5 ml Output Urine Total 330 ml 165 ml Stool Total 300 ml Gastric Drainage Total 400 ml # Bowel Movements 1 3 Laboratory Tests 03/28/18 14:30: White Blood Count 15.0H, Red Blood Count 3.55L, Hemoglobin 10.4#L, Hematocrit 33.1#L, Mean Corpuscular Volume 93, Mean Corpuscular Hemoglobin 29.2, Mean Corpuscular Hemoglobin Concent 31.3L, Red Cell Distribution Width 16.2H, Platelet Count 218, Mean Platelet Volume 7.6, Neutrophils (%) (Auto) , Lymphocytes (%) (Auto) , Monocytes (%) (Auto) , Eosinophils (%) (Auto) , Basophils (%) (Auto) , Differential Total Cells Counted 100, Neutrophils % ( Manual) 64, Lymphocytes % (Manual) 10L, Monocytes % (Manual) 8, Eosinophils % ( Manual) 0, Basophils % (Manual) 0, Band Neutrophils 18H, Nucleated Red Blood Cells 6, Platelet Estimate Adequate, Platelet Morphology Normal, Giant Platelets Occasional, Polychromasia 1+, Hypochromasia 1+, Poikilocytosis 1+, Anisocytosis 2+, Acanthocytes 1+, Schistocytes Occasional, Sodium Level 133L, Potassium Level 5.0, Chloride Level 100, Carbon Dioxide Level 15L, Anion Gap 18H , Blood Urea Nitrogen 111H, Creatinine 1.9H, Estimat Glomerular Filtration Rate , Glucose Level 164H, Hemoglobin A1c 6.4H, Lactic Acid Level 3.20H, Calcium Level 7.7L, Total Bilirubin 1.2H, Direct Bilirubin 1.1H, Aspartate Amino Transf (AST/SGOT) 220H, Alanine Aminotransferase (ALT/SGPT) 37, Alkaline Phosphatase 380H, Total Protein 6.3L, Albumin 1.5L, Globulin 4.8, Albumin/Globulin Ratio 0.3L 03/28/18 16:50: Arterial Blood pH 7.180*L, Arterial Blood Partial Pressure CO2 39.8, Arterial Blood Partial Pressure O2 159.2H, Arterial Blood HCO3 14.6L, Arterial Blood Oxygen Saturation 98.7H, Arterial Blood Base Excess -13.0, Cristopher Test Positive 03/28/18 23:09: Stool Occult Blood [Pending] 03/29/18 05:00: Lactic Acid Level 1.60, Random Vancomycin Level 17.7 03/29/18 06:25: White Blood Count 15.2H, Red Blood Count 3.18L, Hemoglobin 9.3L, Hematocrit 28.9L, Mean Corpuscular Volume 91, Mean Corpuscular Hemoglobin 29.4, Mean Corpuscular Hemoglobin Concent 32.4, Red Cell Distribution Width 16.2H, Platelet Count 203, Mean Platelet Volume 7.0, Neutrophils (%) (Auto) , Lymphocytes (%) (Auto) , Monocytes (%) (Auto) , Eosinophils (%) (Auto) , Basophils (%) (Auto) , Differential Total Cells Counted 100, Neutrophils % ( Manual) 79H, Lymphocytes % (Manual) 7L, Monocytes % (Manual) 10, Eosinophils % ( Manual) 1, Basophils % (Manual) 0, Band Neutrophils 3, Nucleated Red Blood Cells 9, Platelet Estimate Adequate, Platelet Morphology Normal, Anisocytosis 1+ , Macrocytosis 1+, [place] Cells 2+, Acanthocytes 1+, Sodium Level 132L, Potassium Level 4.7, Chloride Level 97L, Carbon Dioxide Level 18L, Anion Gap 18H, Blood Urea Nitrogen 119H, Creatinine 2.1H, Estimat Glomerular Filtration Rate , Glucose Level 145H, Calcium Level 7.3L, Total Bilirubin 1.4H, Direct Bilirubin 1.1H, Aspartate Amino Transf (AST/SGOT) 316H, Alanine Aminotransferase (ALT/SGPT ) 45, Alkaline Phosphatase 380H, Total Protein 6.1L, Albumin 1.4L, Globulin 4.7 , Albumin/Globulin Ratio 0.3L Height (Feet): 5 Height (Inches): 2.00 Weight (Pounds): 159 General Appearance: WD/WN, lethargic Neck: normal inspection Cardiovascular: regular rhythm Respiratory/Chest: rhonchi - bilaterally Abdomen: no organomegaly, no mass Neurologic: unresponsive Leonel Rivero MD Mar 29, 2018 10:09
[2018-03-29] MEDS ORDERED: PCA Morphine 1mg/ml 30 ML IV PRN (10:15)
--- NOTE | 2018-03-29 10:15 | Diagnostic Imaging Report ---
Indication: Dyspnea Technique: One view of the chest Comparison: 03/28/2018 Findings: Right jugular central venous catheter, tracheostomy remain. Diffuse airspace consolidation bilaterally appears unchanged. There may be a small right pleural effusion Impression: Unchanged, over one day, findings as above.
[2018-03-29] MEDS ORDERED: Sterile Water Irrig 1000ml IRRIG ONE (15:32)
--- NOTE | 2018-03-29 17:15 | Consultation ---
DATE OF CONSULTATION: 03/29/2018 INFECTIOUS DISEASES CONSULTATION CONSULTING PHYSICIAN: Gage Pathak M.D. REFERRING PHYSICIAN: Leonel Rivero M.D. REASON FOR CONSULTATION: Septic shock. HISTORY OF PRESENTING ILLNESS: This is an 82-year-old lady with history of diabetes, hypertension, respiratory failure, status post tracheostomy, atrial fibrillation, and cerebral aneurysm, who came in from a snf facility with altered mental status. She was found to be poorly responsive, lethargic, and hypotensive. She was found to have elevated BUN of 114 and creatinine of 2 with elevated potassium of 6. She has been admitted to the ICU and an Infectious Diseases consultation has been obtained for possible septic shock. PAST MEDICAL HISTORY: 1. History of diabetes. 2. Hypertension. 3. Respiratory failure, status post tracheostomy. 4. Status post G-tube placement. 5. Atrial fibrillation. 6. Cerebral aneurysm. 7. Diabetic nephropathy. 8. Venous insufficiency. MEDICATIONS: As an inpatient, the patient is on morphine, ascorbic acid, famotidine, zinc sulfate, received intravenous vancomycin, chlorhexidine, gluconate, Zosyn, insulin, norepinephrine, and Zofran. ALLERGIES: No known drug allergies. SOCIAL HISTORY: No history of smoking, alcohol, or drug use. FAMILY HISTORY: Unknown. REVIEW OF SYSTEMS: Unable to obtain currently. PHYSICAL EXAMINATION: VITAL SIGNS: Temperature of 98.6, T-max of 98.7, pulse of 84, respiratory rate 22, blood pressure 124/34, and O2 saturation of 98%. HEENT: Pupils equally reactive to light and accommodation. Mouth appears clean without thrush. NECK: Supple. No adenopathy. No JVD. Tracheostomy site appears clean. CARDIOVASCULAR: Regular rate and rhythm. No murmurs. LUNGS: Clear to auscultation bilaterally. No crackles. No wheezes. ABDOMEN: Soft and nontender. No organomegaly. G-tube site appears clean. EXTREMITIES: No cyanosis, no clubbing. Edema noted bilaterally. Right subclavian catheter noted. LABORATORY AND DIAGNOSTIC DATA: White count of 15.2, hemoglobin 9.3, hematocrit 28.9, MCV 91, and platelet count of 203,000 with neutrophils of 79%. Sodium 132, potassium 4.7, chloride 97, bicarbonate 18, BUN 119, creatinine 2.1, glucose 145, and calcium 7.3. Total bilirubin 1.4 and direct bilirubin 1.1. AST 316, ALT 45, and alkaline phosphatase 380. Total protein 6.1. Albumin 1.4. Blood cultures from 03/28/2018 is showing gram-positive cocci in pairs and chain. Stool for C. difficile is negative. UA is showing 0 to 2 white cells. Chest x-ray is showing diffuse airspace consolidation bilaterally and small right-sided pleural effusion noted. Abdominal ultrasound is showing diffusely echogenic liver suggesting fatty infiltration and cholelithiasis noted. 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 ASSESSMENT: This is an 82-year-old lady with history of atrial fibrillation, diabetes, and hypertension, who comes in with, 1. Gram-positive sepsis. 2. Renal failure. 3. Respiratory failure. 4. Atrial fibrillation. PLAN: 1. Continue Zosyn. 2. Discontinue vancomycin. 3. We will start the patient on linezolid. 4. We will follow up cultures and adjust antibiotics accordingly. I would like to thank, Dr. Rivero, for this consultation. Gage Pathak M.D. DR: RICHARDSON JOB#: [id number] CC: Leonel Rivero M.D.
[2018-03-29] MEDS: Dyna-Hex 2% Top Sol 2oz TOPIC SCH (19:37)
[2018-03-30] VITALS (14 sets, daily range): BP systolic 84–118; BP diastolic 24–51
[2018-03-30] MEDS: Sodium Bicarbonate 50 ML in 1/2 NS 1000ml 1,000 ML IV SCH ×2 (00:27→11:35)
[2018-03-30] MEDS: NovoLOG Insulin Flexpen SUBQ SCH ×2 (05:45→11:38)
[2018-03-30] MEDS: Zinc Sulfate 220mg cap GT SCH (08:30)
[2018-03-30] MEDS: Ascorbic Acid 500mg tab GT SCH (08:30)
[2018-03-30] MEDS: Piperacillin/Tazobactam 3.375 GM in D5W 110 ML IVPB SCH (08:30)
--- NOTE | 2018-03-30 10:19 | Infectious Diseases Prog Note ---
Assessment/Plan Assessment/Plan A; Sepsis/ gram negative & gram positive Pneumonia versus pulmonary edema VDRF Renal failure DM + nephropathy Anemia Anasarca P: Continue Zosyn & Zyvox Will f/u culture Poor prognosis DNR status Subjective Gastrointestinal/Abdominal: Reports: diarrhea Allergies: Coded Allergies: No Known Allergies (Unverified , 03/28/18) Objective Vital Signs Last 24 Hour Vital Signs Date Time Temp Pulse Resp B/P (MAP) Pulse Ox O2 Delivery O2 Flow Rate FiO2 03/30/18 08:00 98.0 75 20 113/42 94 Mechanical Ventilator 40 98.0 03/30/18 08:00 84 03/30/18 08:00 40 03/30/18 07:00 80 21 104/31 95 Mechanical Ventilator 40 03/30/18 06:51 91 22 45 03/30/18 06:00 79 21 112/32 94 Mechanical Ventilator 40 03/30/18 05:00 78 22 88/38 97 Mechanical Ventilator 50 03/30/18 04:56 77 21 45 03/30/18 04:02 77 03/30/18 04:00 98.0 80 22 92/30 99 Mechanical Ventilator 50 98.0 03/30/18 04:00 50 03/30/18 03:15 79 20 50 03/30/18 03:00 79 21 118/51 99 Mechanical Ventilator 50 03/30/18 02:00 82 22 84/24 99 Mechanical Ventilator 50 03/30/18 01:08 83 22 50 03/30/18 01:00 79 22 110/28 99 Mechanical Ventilator 50 03/30/18 00:00 98.9 75 20 111/26 96 Mechanical Ventilator 50 98.9 03/30/18 00:00 50 03/29/18 23:01 81 03/29/18 23:00 79 21 96/40 97 Mechanical Ventilator 50 03/29/18 22:37 82 21 50 03/29/18 22:00 77 21 102/36 97 Mechanical Ventilator 50 03/29/18 21:05 73 19 50 03/29/18 21:00 82 23 103/36 98 Mechanical Ventilator 50 03/29/18 20:00 98.8 81 24 105/33 97 Mechanical Ventilator 50 98.8 03/29/18 20:00 50 03/29/18 19:26 87 24 50 03/29/18 19:24 80 03/29/18 19:00 104/54 03/29/18 19:00 78 16 107/36 98 Mechanical Ventilator 50 03/29/18 18:00 79 23 104/23 97 Mechanical Ventilator 50 03/29/18 18:00 107/29 03/29/18 17:00 79 22 109/30 97 Mechanical Ventilator 50 03/29/18 17:00 109/30 03/29/18 16:51 83 23 50 03/29/18 16:00 50 03/29/18 16:00 84 03/29/18 16:00 99.8 89 18 123/67 100 Mechanical Ventilator 50 99.8 03/29/18 15:19 77 24 50 03/29/18 15:00 79 23 113/28 99 Mechanical Ventilator 50 03/29/18 14:00 88 20 110/35 99 Mechanical Ventilator 50 03/29/18 13:09 82 20 50 03/29/18 13:00 79 20 113/35 98 Mechanical Ventilator 50 03/29/18 12:00 50 03/29/18 12:00 110/27 03/29/18 12:00 98.6 79 18 110/27 100 Mechanical Ventilator 50 98.6 03/29/18 12:00 71 03/29/18 11:28 84 22 50 03/29/18 11:00 94/26 03/29/18 11:00 86 20 124/34 98 Mechanical Ventilator 50 Height (Feet): 5 Height (Inches): 2.00 Weight (Pounds): 155 HEENT: status post trach Respiratory/Chest: decreased breath sounds, other - on ventilator Cardiovascular: normal rate, other - RIJ central line Abdomen: soft, non tender, other - GT & rectal tube Extremities: other - Generalized edema Neurologic/Psychiatric: unresponsiveness Microbiology Date/Time Source Procedure Growth Status 03/28/18 07:30 Blood Blood Culture - Preliminary Gram Negative Bacillus 1 Resulted 03/28/18 07:15 Blood Blood Culture - Preliminary Resulted 03/28/18 09:50 Nasal Nares MRSA Culture - Final NO METHICILLIN RESISTANT STAPH AUREUS... Complete 03/28/18 23:09 Stool Clostridium difficile Toxin Assay - Final Complete 03/28/18 23:00 Abdomen Gram Stain - Final Resulted 03/28/18 23:00 Abdomen Wound Culture Pending Resulted 03/28/18 09:50 Rectum VRE Culture - Final NO VANCOMYCIN RESISTANT ENTEROCOCCUS ... Complete Current Medications Medications (Trade) Dose Ordered Sig/Melodie Route PRN Reason Start Time Stop Time Status Last Admin Dose Admin Acetaminophen (Tylenol) 650 mg Q4H PRN GT Fever/Headache/Mild Pain 03/28/18 13:45 04/27/18 13:44 Ascorbic Acid (Vitamin C) 500 mg DAILY GT 03/29/18 09:00 04/28/18 08:59 03/30/18 08:30 Chlorhexidine Gluconate (Irene-Hex 2%) 1 applic DAILY@2000 TOPIC 03/28/18 20:00 04/27/18 19:59 03/29/18 19:37 Dextrose (Dextrose 50%) 25 ml STAT PRN IV Hypoglycemia 03/28/18 13:45 04/27/18 13:44 Dextrose (Dextrose 50%) 50 ml STAT PRN IV Hypoglycemia 03/28/18 13:45 04/27/18 13:44 Famotidine (Pepcid) 20 mg DAILY GT 03/29/18 09:00 04/28/18 08:59 03/30/18 08:30 Insulin Aspart (NovoLOG) Q6HR SUBQ 03/28/18 18:00 04/27/18 17:59 03/30/18 05:45 Linezolid 300 ml @ 300 mls/hr Q12HR IVPB 03/29/18 13:30 04/05/18 13:29 03/30/18 08:30 Morphine Sulfate 30 ml @ 0 mls/hr [employer]PORATE ACCOUNT EXECUTIVE Protocol PRN IV For Pain 03/29/18 10:15 03/31/18 10:14 UNV Norepinephrine Bitartrate 4 mg/ Dextrose 250 ml @ 0 mls/hr Q24H IV 03/28/18 17:00 04/27/18 16:59 03/28/18 17:19 Ondansetron HCl (Zofran) 4 mg Q4H PRN IVP Nausea & Vomiting 03/28/18 13:45 04/27/18 13:44 Piperacillin Sod/ Tazobactam Sod 3.375 gm/Dextrose 110 ml @ 27.5 mls/hr Q12HR IVPB 03/28/18 18:00 04/04/18 17:59 03/30/18 08:30 Sodium Bicarbonate 50 ml/ Sodium Chloride 1,050 ml @ 100 mls/hr [id number] IV 6/10/18 17:00 04/27/18 16:59 03/30/18 00:27 Zinc Sulfate (Zinc Sulfate) 220 mg DAILY GT 03/29/18 09:00 04/28/18 08:59 03/30/18 08:30 Jorge Ying MD Mar 30, 2018 10:19
--- NOTE | 2018-03-30 11:01 | General Progress Note ---
Assessment/Plan Problem List: (1) Lactic acidosis ICD Codes: E87.2 - Acidosis SNOMED: 79227945, 302336820 (2) Hyperkalemia, transcellular shifts ICD Codes: E87.5 - Hyperkalemia SNOMED: 0894664, 357880628 (3) Anemia ICD Codes: D64.9 - Anemia, unspecified SNOMED: 436333002, 533748083 (4) Anasarca ICD Codes: R60.1 - Generalized edema SNOMED: 813003961, 552190854 (5) Pulmonary edema ICD Codes: J81.1 - Chronic pulmonary edema SNOMED: 70327865 (6) Severe sepsis ICD Codes: A41.9 - Sepsis, unspecified organism; R65.20 - Severe sepsis without septic shock SNOMED: 03295661, 422007464 (7) Feeding by G-tube ICD Codes: Z93.1 - Gastrostomy status; R65.20 - Severe sepsis without septic shock SNOMED: 911947237, 447182534 (8) Hepatic encephalopathy ICD Codes: K72.90 - Hepatic failure, unspecified without coma SNOMED: 54484387, 390758604 Status: not improved, deteriorating Assessment/Plan convert to comfort care once all family has arrived pt with multiorgan system little hope of meaningful recovery d/w dtr at the bedside. states her mother told her she did not want to suffer Subjective ROS Limited/Unobtainable: No Constitutional: Reports: malaise, weakness HEENT: Reports: no symptoms Cardiovascular: Reports: no symptoms Respiratory: Reports: shortness of breath Gastrointestinal/Abdominal: Reports: difficulty swallowing Genitourinary: Reports: no symptoms Neurologic/Psychiatric: Reports: pre-existing deficit Endocrine: Reports: no symptoms Hematologic/Lymphatic: Reports: anemia Allergies: Coded Allergies: No Known Allergies (Unverified , 03/28/18) All Systems: reviewed and negative except above Subjective unresponsive. +sob. no uop. off pressors. family at the bedside. does not want pt to suffer. want to convert to comfort care once all family members have arrived Objective Last 24 Hour Vital Signs Date Time Temp Pulse Resp B/P (MAP) Pulse Ox O2 Delivery O2 Flow Rate FiO2 03/30/18 10:00 77 20 99/32 93 Mechanical Ventilator 40 03/30/18 09:00 93 20 109/44 95 Mechanical Ventilator 40 03/30/18 08:00 98.0 75 20 113/42 94 Mechanical Ventilator 40 98.0 03/30/18 08:00 84 03/30/18 08:00 40 03/30/18 07:00 80 21 104/31 95 Mechanical Ventilator 40 03/30/18 06:51 91 22 45 03/30/18 06:00 79 21 112/32 94 Mechanical Ventilator 40 03/30/18 05:00 78 22 88/38 97 Mechanical Ventilator 50 03/30/18 04:56 77 21 45 03/30/18 04:02 77 03/30/18 04:00 98.0 80 22 92/30 99 Mechanical Ventilator 50 98.0 03/30/18 04:00 50 03/30/18 03:15 79 20 50 03/30/18 03:00 79 21 118/51 99 Mechanical Ventilator 50 03/30/18 02:00 82 22 84/24 99 Mechanical Ventilator 50 03/30/18 01:08 83 22 50 03/30/18 01:00 79 22 110/28 99 Mechanical Ventilator 50 03/30/18 00:00 98.9 75 20 111/26 96 Mechanical Ventilator 50 98.9 03/30/18 00:00 50 03/29/18 23:01 81 03/29/18 23:00 79 21 96/40 97 Mechanical Ventilator 50 03/29/18 22:37 82 21 50 03/29/18 22:00 77 21 102/36 97 Mechanical Ventilator 50 03/29/18 21:05 73 19 50 03/29/18 21:00 82 23 103/36 98 Mechanical Ventilator 50 03/29/18 20:00 98.8 81 24 105/33 97 Mechanical Ventilator 50 98.8 03/29/18 20:00 50 03/29/18 19:26 87 24 50 03/29/18 19:24 80 03/29/18 19:00 104/54 03/29/18 19:00 78 16 107/36 98 Mechanical Ventilator 50 03/29/18 18:00 79 23 104/23 97 Mechanical Ventilator 50 03/29/18 18:00 107/29 03/29/18 17:00 79 22 109/30 97 Mechanical Ventilator 50 03/29/18 17:00 109/30 03/29/18 16:51 83 23 50 03/29/18 16:00 50 03/29/18 16:00 84 03/29/18 16:00 99.8 89 18 123/67 100 Mechanical Ventilator 50 99.8 03/29/18 15:19 77 24 50 03/29/18 15:00 79 23 113/28 99 Mechanical Ventilator 50 03/29/18 14:00 88 20 110/35 99 Mechanical Ventilator 50 03/29/18 13:09 82 20 50 03/29/18 13:00 79 20 113/35 98 Mechanical Ventilator 50 03/29/18 12:00 50 03/29/18 12:00 110/27 03/29/18 12:00 98.6 79 18 110/27 100 Mechanical Ventilator 50 98.6 03/29/18 12:00 71 03/29/18 11:28 84 22 50 Intake and Output 03/29/18 03/30/18 19:00 07:00 Intake Total 1817.0005 ml 1510.0 ml Output Total 10 ml 130 ml Balance 1807.0005 ml 1380.0 ml IV Total 1817.0005 ml 1510.0 ml Output Urine Total 10 ml 30 ml Stool Total 100 ml Height (Feet): 5 Height (Inches): 2.00 Weight (Pounds): 155 General Appearance: WD/WN Neck: supple Cardiovascular: regular rhythm Respiratory/Chest: lungs clear Abdomen: normal bowel sounds, non tender, soft Neurologic: unresponsive Leonel Rivero MD Mar 30, 2018 11:01
--- NOTE | 2018-03-30 12:13 | Critical Care Progress Note ---
Assessment/Plan Assessment/Plan IMPRESSION: 1. Multiorgan dysfunction. 2. Respiratory failure. 3. Metabolic acidemia. 4. Lactic acidosis. 5. Leukocytosis. 6. Anemia. 7. Severe protein-calorie malnutrition. 8. Acute renal failure. 9. Diabetes. 10. Hypotension. PLAN hemodynamics improved hyperventilate as is and follow up on ABG monitor for change antibiotics culture review IV hydration feeds ICU care and management repeat ABG and adjust vent Critical Care - Subjective ROS Limited/Unobtainable: Yes EKG Rhythm: Sinus Rhythm I&O: Intake and Output 03/29/18 03/30/18 19:00 07:00 Intake Total 1817.0005 ml 1510.0 ml Output Total 10 ml 130 ml Balance 1807.0005 ml 1380.0 ml IV Total 1817.0005 ml 1510.0 ml Output Urine Total 10 ml 30 ml Stool Total 100 ml Critical Care - Objective Last 24 Hour Vital Signs Date Time Temp Pulse Resp B/P (MAP) Pulse Ox O2 Delivery O2 Flow Rate FiO2 03/30/18 11:12 75 20 45 03/30/18 10:00 77 20 99/32 93 Mechanical Ventilator 40 03/30/18 09:00 93 20 109/44 95 Mechanical Ventilator 40 03/30/18 08:48 90 23 45 03/30/18 08:00 98.0 75 20 113/42 94 Mechanical Ventilator 40 98.0 03/30/18 08:00 84 03/30/18 08:00 40 03/30/18 07:00 80 21 104/31 95 Mechanical Ventilator 40 03/30/18 06:51 91 22 45 03/30/18 06:00 79 21 112/32 94 Mechanical Ventilator 40 03/30/18 05:00 78 22 88/38 97 Mechanical Ventilator 50 03/30/18 04:56 77 21 45 03/30/18 04:02 77 03/30/18 04:00 98.0 80 22 92/30 99 Mechanical Ventilator 50 98.0 03/30/18 04:00 50 03/30/18 03:15 79 20 50 03/30/18 03:00 79 21 118/51 99 Mechanical Ventilator 50 03/30/18 02:00 82 22 84/24 99 Mechanical Ventilator 50 03/30/18 01:08 83 22 50 03/30/18 01:00 79 22 110/28 99 Mechanical Ventilator 50 03/30/18 00:00 98.9 75 20 111/26 96 Mechanical Ventilator 50 98.9 03/30/18 00:00 50 03/29/18 23:01 81 03/29/18 23:00 79 21 96/40 97 Mechanical Ventilator 50 03/29/18 22:37 82 21 50 03/29/18 22:00 77 21 102/36 97 Mechanical Ventilator 50 03/29/18 21:05 73 19 50 03/29/18 21:00 82 23 103/36 98 Mechanical Ventilator 50 03/29/18 20:00 98.8 81 24 105/33 97 Mechanical Ventilator 50 98.8 03/29/18 20:00 50 03/29/18 19:26 87 24 50 03/29/18 19:24 80 03/29/18 19:00 104/54 03/29/18 19:00 78 16 107/36 98 Mechanical Ventilator 50 03/29/18 18:00 79 23 104/23 97 Mechanical Ventilator 50 03/29/18 18:00 107/29 03/29/18 17:00 79 22 109/30 97 Mechanical Ventilator 50 03/29/18 17:00 109/30 03/29/18 16:51 83 23 50 03/29/18 16:00 50 03/29/18 16:00 84 03/29/18 16:00 99.8 89 18 123/67 100 Mechanical Ventilator 50 99.8 03/29/18 15:19 77 24 50 03/29/18 15:00 79 23 113/28 99 Mechanical Ventilator 50 03/29/18 14:00 88 20 110/35 99 Mechanical Ventilator 50 03/29/18 13:09 82 20 50 03/29/18 13:00 79 20 113/35 98 Mechanical Ventilator 50 Objective: GENERAL: A well-developed female, chronically ill. LUNGS: With some rhonchi. Moderate air entry. trach in place CARDIAC: Normal S1, S2. Regular rate and rhythm. Distant. ABDOMEN: Soft, nontender. G-tube. EXTREMITIES: No cyanosis. Reduced range of motion. Poor mental status. NEUROLOGICAL: Obtunded. Micro: Microbiology Date/Time Source Procedure Growth Status 03/28/18 07:30 Blood Blood Culture - Preliminary Gram Negative Bacillus 1 Resulted 03/28/18 07:15 Blood Blood Culture - Preliminary Resulted 03/28/18 09:50 Nasal Nares MRSA Culture - Final NO METHICILLIN RESISTANT STAPH AUREUS... Complete 03/28/18 23:09 Stool Clostridium difficile Toxin Assay - Final Complete 03/28/18 23:00 Abdomen Gram Stain - Final Resulted 03/28/18 23:00 Abdomen Wound Culture Pending Resulted 03/28/18 09:50 Rectum VRE Culture - Final NO VANCOMYCIN RESISTANT ENTEROCOCCUS ... Complete Accucheck: 215 Fei Velasquez MD Mar 30, 2018 12:13
[2018-03-30] MEDS ORDERED: PCA Morphine 1mg/ml 30 ML IV PRN ×5 (12:30→19:45)
[2018-03-30] MEDS ORDERED: Acetaminophen 650mg/20.3ml GT PRN (13:00)
--- NOTE | 2018-03-30 14:37 | Consultation ---
History of Present Illness General Chief Complaint: Altered Level of Consciousness Reason for Consultation: decubitus ulcers Present Illness HPI 82F multiple medical issues currently with very poor prognosis. Upon admission noted to have multiple ulcers. Surgery called to evaluate. Allergies: Coded Allergies: No Known Allergies (Unverified , 03/28/18) Medication History Scheduled Acetazolamide* (Acetazolamide*), 250 MG GT THREE TIMES A DAY, (Reported) Amlodipine Besylate* (Amlodipine Besylate*), 10 MG GT DAILY, (Reported) Artificial Tears (Refresh Lacri-Lube Ointment), 1 APPLIC BOTH EYES QHS, ( Reported) Ascorbic Acid* (Vitamin C*), 500 MG GT DAILY, (Reported) Aspirin* (Aspir 81*), 81 MG GT DAILY, (Reported) Atorvastatin Calcium* (Atorvastatin Calcium*), 80 MG GT BEDTIME, (Reported) Calcium Carbonate/Vitamin D3 (Calcium + Vitamin D Tablet), 1 EACH GT DAILY, ( Reported) Clopidogrel* (Clopidogrel*), 75 MG GT DAILY, (Reported) Cran/Vitc/Mannose/Inulin/Brom (Uti-Stat Liquid), 30 ML GT BID, (Reported) Ergocalciferol (Vitamin D2)* (Vitamin D*), 50,000 UNIT GT ONCE A WEEK, (Reported ) Famotidine (Famotidine), 20 MG GT TWICE A DAY, (Reported) Furosemide* (Lasix*), 40 MG GT BID, (Reported) Metoprolol Succinate* (Metoprolol Succinate*), 25 MG GT Q12HR, (Reported) Multivitamin Liquid* (Multi-Delyn*), 5 ML GT DAILY, (Reported) Nph, Human Insulin Isophane* (Novolin N*), 5 UNITS SUBQ Q8HR, (Reported) Polyethylene Glycol 3350* (Miralax*), 17 GM GT DAILY, (Reported) Quetiapine Fumarate* (Seroquel*), 25 MG GT QHS, (Reported) Sennosides/Docusate Sodium (Senna-S Tablet), 2 EACH GT QHS, (Reported) Zinc Sulfate (Zinc Sulfate*), 220 MG GT DAILY, (Reported) [gabapentin liquid], 200 MG GT QHS, (Reported) Scheduled PRN Acetaminophen* (Acetaminophen 325MG Tablet*), 650 MG GT Q4H PRN for Fever/ Headache/Mild Pain, (Reported) Bisacodyl* (Dulcolax*), 10 MG RC DAILY PRN for Constipation, (Reported) Ondansetron* (Zofran*), 2 MG IM Q8HR PRN for Nausea & Vomiting, (Reported) Miscellaneous Medications [Lispro insulin ss], (Reported) Patient History Limited by: medical condition Healthcare decision maker N Resuscitation status Full Code Advanced Directive on File Past Medical/Surgical History Past Medical/Surgical History: (1) Unstageable decubitus ulcer (2) Hyperkalemia, transcellular shifts (3) Lactic acidosis (4) Anasarca (5) Anemia (6) Pulmonary edema (7) Hypotension (8) Ventilator dependent (9) Severe sepsis (10) Feeding by G-tube (11) Hepatic encephalopathy Review of Systems ROS Narrative n/a Physical Exam Physical Exam Narrative please refer to wound care photos. Last 24 Hour Vital Signs Date Time Temp Pulse Resp B/P (MAP) Pulse Ox O2 Delivery O2 Flow Rate FiO2 03/30/18 12:00 40 03/30/18 12:00 50 20 97/48 93 Mechanical Ventilator 40 03/30/18 11:12 75 20 45 03/30/18 10:00 77 20 99/32 93 Mechanical Ventilator 40 03/30/18 09:00 93 20 109/44 95 Mechanical Ventilator 40 03/30/18 08:48 90 23 45 03/30/18 08:00 98.0 75 20 113/42 94 Mechanical Ventilator 40 98.0 03/30/18 08:00 84 03/30/18 08:00 40 03/30/18 07:00 80 21 104/31 95 Mechanical Ventilator 40 03/30/18 06:51 91 22 45 03/30/18 06:00 79 21 112/32 94 Mechanical Ventilator 40 03/30/18 05:00 78 22 88/38 97 Mechanical Ventilator 50 03/30/18 04:56 77 21 45 03/30/18 04:02 77 03/30/18 04:00 98.0 80 22 92/30 99 Mechanical Ventilator 50 98.0 03/30/18 04:00 50 03/30/18 03:15 79 20 50 03/30/18 03:00 79 21 118/51 99 Mechanical Ventilator 50 03/30/18 02:00 82 22 84/24 99 Mechanical Ventilator 50 03/30/18 01:08 83 22 50 03/30/18 01:00 79 22 110/28 99 Mechanical Ventilator 50 03/30/18 00:00 98.9 75 20 111/26 96 Mechanical Ventilator 50 98.9 03/30/18 00:00 50 03/29/18 23:01 81 03/29/18 23:00 79 21 96/40 97 Mechanical Ventilator 50 03/29/18 22:37 82 21 50 03/29/18 22:00 77 21 102/36 97 Mechanical Ventilator 50 03/29/18 21:05 73 19 50 03/29/18 21:00 82 23 103/36 98 Mechanical Ventilator 50 03/29/18 20:00 98.8 81 24 105/33 97 Mechanical Ventilator 50 98.8 03/29/18 20:00 50 03/29/18 19:26 87 24 50 03/29/18 19:24 80 03/29/18 19:00 104/54 03/29/18 19:00 78 16 107/36 98 Mechanical Ventilator 50 03/29/18 18:00 79 23 104/23 97 Mechanical Ventilator 50 03/29/18 18:00 107/29 03/29/18 17:00 79 22 109/30 97 Mechanical Ventilator 50 03/29/18 17:00 109/30 03/29/18 16:51 83 23 50 03/29/18 16:00 50 03/29/18 16:00 84 03/29/18 16:00 99.8 89 18 123/67 100 Mechanical Ventilator 50 99.8 03/29/18 15:19 77 24 50 03/29/18 15:00 79 23 113/28 99 Mechanical Ventilator 50 Intake and Output 03/29/18 03/30/18 19:00 07:00 Intake Total 1817.0005 ml 1510.0 ml Output Total 10 ml 130 ml Balance 1807.0005 ml 1380.0 ml IV Total 1817.0005 ml 1510.0 ml Output Urine Total 10 ml 30 ml Stool Total 100 ml Height (Feet): 5 Height (Inches): 2.00 Weight (Pounds): 155 Medications Current Medications Medications (Trade) Dose Ordered Sig/Melodie Route PRN Reason Start Time Stop Time Status Last Admin Dose Admin Acetaminophen (Tylenol) 650 mg Q4H PRN GT Fever/Headache/Mild Pain 03/30/18 13:00 04/27/18 12:59 Ascorbic Acid (Vitamin C) 500 mg DAILY GT 03/31/18 09:00 04/28/18 08:59 Chlorhexidine Gluconate (Irene-Hex 2%) 1 applic DAILY@2000 TOPIC 03/30/18 20:00 04/27/18 19:59 Dextrose (Dextrose 50%) 25 ml STAT PRN IV Hypoglycemia 03/30/18 13:00 04/27/18 12:59 Dextrose (Dextrose 50%) 50 ml STAT PRN IV Hypoglycemia 03/30/18 13:00 04/29/18 12:59 Famotidine (Pepcid) 20 mg DAILY GT 03/31/18 09:00 04/28/18 08:59 Insulin Aspart (NovoLOG) Q6HR SUBQ 03/30/18 18:00 04/27/18 17:59 Linezolid 300 ml @ 300 mls/hr Q12HR IVPB 03/30/18 21:00 04/05/18 13:29 Morphine Sulfate 30 ml @ 0 mls/hr HYDRO OPERATOR Protocol PRN IV For Pain 03/30/18 12:30 04/01/18 12:29 UNV Ondansetron HCl (Zofran) 4 mg Q4H PRN IVP Nausea & Vomiting 03/30/18 13:00 04/27/18 12:59 Piperacillin Sod/ Tazobactam Sod 3.375 gm/Dextrose 110 ml @ 27.5 mls/hr Q12HR IVPB 03/30/18 21:00 04/04/18 17:59 Sodium Bicarbonate 50 ml/ Sodium Chloride 1,050 ml @ 100 mls/hr [id number] IV 03/28/18 17:00 03/30/18 21:29 03/30/18 11:35 Sodium Bicarbonate 50 ml/ Sodium Chloride 1,050 ml @ 100 mls/hr [id number] IV 03/30/18 21:30 04/27/18 21:29 Zinc Sulfate (Zinc Sulfate) 220 mg DAILY GT 03/31/18 09:00 04/28/18 08:59 Assessment/Plan Problem List: (1) Unstageable decubitus ulcer Assessment & Plan: Multiple Ulcers identified. -Unstageable Sacral decubitus ulcer with surrounding erythema, necrotic eschar, no drainage, no signs of active infection, no odor -bilateral stage 4 heel ulcers with necrotic tissue -fede g tube site ulcer All wounds present on admission Patient to be comfort care soon and family wants her to be comfortable Will defer surgical debridement at this time given condition keep off wounds air soft mattress foam dressings and skin protectant to wounds thank you ICD Codes: L89.95 - Pressure ulcer of unspecified site, unstageable SNOMED: [id number] Zi Fontana Mar 30, 2018 14:37
[2018-03-30] MEDS ORDERED: NovoLOG Insulin Flexpen SUBQ SCH (18:00)
[2018-03-30] MEDS ORDERED: Rate Change Narcotic Drip MISC PRN (19:00)
[2018-03-30] MEDS ORDERED: Dyna-Hex 2% Top Sol 2oz TOPIC SCH (20:00)
[2018-03-30] MEDS ORDERED: Piperacillin/Tazobactam 3.375 GM in D5W 110 ML IVPB SCH (21:00)
[2018-03-30] MEDS ORDERED: Sodium Bicarbonate 50 ML in 1/2 NS 1000ml 1,000 ML IV SCH (21:30)
[2018-03-31] MEDS ORDERED: Narcotic Shift Volume MISC SCH (07:00)
[2018-03-31] MEDS ORDERED: Zinc Sulfate 220mg cap GT SCH (09:00)
[2018-03-31] MEDS ORDERED: Ascorbic Acid 500mg tab GT SCH (09:00)
--- NOTE | 2018-03-31 14:18 | Discharge Summary ---
Discharge Summary Hospital Course Date of Admission Mar 28, 2018 at 09:16 Date of Discharge Mar 30, 2018 at 21:24 Admitting Diagnosis Severe Sepsis, Anasarca, Hyperkalemia, acidosis HPI Mic Fenton is a 82 year old female who was admitted on Mar 28, 2018 at 09:16 for Severe Sepsis, Anasarca, Hyperkalemia, Acidosis Hospital Course summary #[id number] Discharge Discharge Disposition Patient Discharge Instructions Discharge Instructions Special Instructions I have been assigned to complete a D/C Summary on this account. I was not involved in the patient management Maya Crump [employer]RO[employer] Mar 31, 2018 14:18
--- NOTE | 2018-04-01 01:15 | Discharge Summary 2 SIG ---
SUMMARY DATE OF ADMISSION: 03/28/2018 DATE OF EXPIRATION: 03/30/2018 REASON FOR ADMISSION: 82-year-old female with chronic ventilator-dependent respiratory failure, history of brain aneurysm, encephalopathy, dysphagia, G-tube, hypertension, diabetes, and chronic obstructive pulmonary disease, [facility] due to worsening level of consciousness. The patient had a prior history of chronic encephalopathy, however, nursing staff noted that she had decreased response to suctioning and decreased eye opening. Blood sugar was checked by visual merchandiser and was stable. Upon evaluation in the emergency room, the patient was afebrile, however, blood pressure was 80/67, respiratory rate 33, and pulse oximetry was 92% on 100% FiO2 . ventilator. CT of the head revealed no acute intracranial pathology, but showed old infarct involving the left posterior parietal lobe and evidence of small- vessel disease. Chest x-ray demonstrated small right pleural effusion. Patchy opacities in bilateral lungs suggestive for pulmonary edema versus infectious etiology. Laboratory workup showed ammonia -123, elevated troponin -0.06, potassium 6.1, sodium 130, BUN 114, creatinine 2.1, lactic acid 8.0, AST 113, alkaline phosphatase 427, and albumin 1.4. WBC 19.0, hemoglobin 7.4, hematocrit 24.1, and neutrophils 83% . ABG on 100% FiO2 revealed stable oxygenation, but evidence of respiratory acidosis with pH of 7.09 and pCO2 of 51.1. The patient with DNR/DNI status. EKG revealed sinus bradycardia, no acute ischemic changes. Heart rate in 50s. The patient had poor intravenous access secondary to anasarca. The patient had a central line placed in the emergency department in anticipation for pressors. The patient was started on the IV fluids. ADMITTING DIAGNOSES: 1. Severe sepsis with shock. 2. Hepatic encephalopathy. 3. Probable pneumonia. 4. Hyperkalemia, transcellular shift. 5. Hypotension. 6. Anemia. 7. Anasarca. 8. Lactic acidosis. 9. Chronic respiratory failure, ventilator depending. 10. Dysphagia, feeding via gastrostomy tube. 11. Pulmonary edema. 12. History of cerebrovascular accident. 13. Diabetes mellitus. 14. History of brain aneurysm. 15. History of atrial fibrillation. 16. Acute renal failure. HOSPITAL COURSE: The patient was admitted to intensive care unit. The patient was started on aggressive fluid resuscitation. Ventilator support and pulmonary toilet provided. Settings titrated as needed. Masticator closely followed. The patient was started initially on empiric antibiotics. ID doctor closely followed. Blood culture revealed Streptococcus species and Citrobacter. Sputum culture revealed Streptococcus group G gram negative bacilli. Stool for C. difficile was negative and wound culture showed yeast and staph coagulase-negative, likely contaminant. The patient was transfused with two units of packed red blood cells. Stool for occult blood was positive. After transfusion, hemoglobin 10.4 and hematocrit 33.1. The patient was noted to have elevated LFT as well as the evidence of renal failure and multiple electrolyte abnormalities. Abdominal ultrasound revealed diffusely echogenic liver suggestive for fatty infiltration as well as the evidence of cholelithiasis, but no gallbladder wall thickening or pericholecystic fluid with negative sonographic Arteaga sign. Antiplatelet therapy was on hold secondary to anemia and possible concern for GI bleeding. GI consult was requested. Overall, prognosis was guarded . The patient demonstrated multiorgan failure with evidence of chronic respiratory failure, acute renal failure, elevated troponin, hepatic encephalopathy, and severe anemia. Surgeon seen the patient for multiple decubitus. The patient has un stageable sacral decubitus , present on admission as well as the bilateral stage IV heel decubitus , present on admission. Sacral decubitus revealed a necrotic eschar, but no drainage , no signs of acute infection and no odor. Bilateral stage IV heel ulcer showed necrotic tissue. However per family wishes, the patient was transitioned to comfort care and surgical debridement was deferred at this time given this condition. Surgeon recommended to keep off wounds, air soft mattress, foam dressing, and skin protectant to wound. The patient had demonstrated multiorgan system failure with little hope of meaningful recovery. The daughter reported that her mother told her before that she did not want to suffer. Family decided on comfort care. The patient was terminally extubated and connected to 100% oxygenation for comfort care. The patient was on on morphine drip. The patient was pronounced at 21:24 on 03/30/2018. CAUSE OF : Cardiopulmonary arrest. FINAL DIAGNOSES: 1. Severe sepsis with Strep and Citrobacter. 2. Shock. 3. Pulmonary edema. 4. Ventilator-dependent respiratory failure. 5. Hepatic encephalopathy. 6. Hyperkalemia, transcellular shift. 7. Pneumonia with Strep group G and gram-negative bacilli. 8. Diabetes mellitus with nephropathy. 9. Acute renal failure. 10. Anemia. 11. Anasarca. 12. Lactic acidosis. 13. Dysphagia, feedings by gastrostomy tube. 14. Multiorgan failure. 15. History of cerebrovascular accident. 16. History of brain aneurysm. 17. Acute renal failure. 18. Atrial fibrillation. 19. Transaminitis. 20. Elevated troponin. 21. Un-stageable sacral decubitus, present on admission. 22. Bilateral stage IV heel decubitus, ulcer present on admission. Leonel Rivero M.D. I have been assigned to dictate discharge summary on this account and I was not involved in the patient's management. Maya GeorgeElmira Psychiatric CenterJosué, N.P. DR: DEEPTHI JOB#: [id number] CC: MARK
== END 2018-03-30 21:24 | disposition expired | DRG 720 ==
LOC: EDBD 07:08 → EMR 07:30 → ICU 09:16 → EDBEDREQ 11:58 → 2W 03-30 11:30
PROC: 30233N1 Transfusion of Nonautologous Red Blood Cells into Peripheral Vein, Percutaneous Approach (ICD-10-PCS; principal; 2018-03-28)
PROC: 5A1945Z Respiratory Ventilation, 24-96 Consecutive Hours (ICD-10-PCS; 2018-03-28)
PROC: 3E03328 Introduction of Oxazolidinones into Peripheral Vein, Percutaneous Approach (ICD-10-PCS; 2018-03-29)
DX: A41.9 Sepsis, unspecified organism (principal); R65.21 Severe sepsis with septic shock; E43 Unspecified severe protein-calorie malnutrition; N17.9 Acute kidney failure, unspecified; L89.614 Pressure ulcer of right heel, stage 4; J18.9 Pneumonia, unspecified organism; Z99.11 Dependence on respirator [ventilator] status; L89.624 Pressure ulcer of left heel, stage 4; J96.10 Chronic respiratory failure, unspecified whether with hypoxia or hypercapnia; E11.21 Type 2 diabetes mellitus with diabetic nephropathy; I48.91 Unspecified atrial fibrillation; K72.90 Hepatic failure, unspecified without coma; Z86.73 Personal history of transient ischemic attack (TIA), and cerebral infarction without residual deficits; I10 Essential (primary) hypertension; Z43.1 Encounter for attention to gastrostomy; Z43.0 Encounter for attention to tracheostomy; L89.90 Pressure ulcer of unspecified site, unspecified stage; E87.5 Hyperkalemia; Z66 Do not resuscitate
CPT/HCPCS: 36415; 36600; 70450; 71045; 76700; 80053; 80202; 81003; 82140; 82248; 82270; 82550; 82553; 82803; 82962; 83036; 83605; 83735; 84100; 84443; 84484; 85007; 85025; 85610; 85730; 86850; 86900; 86901; 86920; 87040; 87070; 87081; 87181; 87205; 87324; 93005; 93925; 93970; 94002; 94003; 99285; 99291; J1815